=== PATIENT | female | born 1945 | race Caucasian/White ===

== ENCOUNTER 2016-10-27 16:08 | Emergency (ER) | payer MEDICARE, OTHER ==
[~2016-10-27] VITALS: Ht 170.2 cm; Wt 81.0 kg
[2016-10-27] MEDS ORDERED: GABAPENTIN100 MG PO (17:06)
[2016-10-27] MEDS ORDERED: ISOSORB MONO30 MG PO (17:07)
[2016-10-27] MEDS ORDERED: CLONIDINE0.1 MG PO (17:07)
[2016-10-27] MEDS ORDERED: CLOPIDOGREL75 MG PO (17:08)
[2016-10-27] MEDS ORDERED: HYDROCHLOROT12.5 MG PO (17:08)
[2016-10-27] MEDS ORDERED: OXYCODONE HCL5 MG PO (17:09)
[2016-10-27] MEDS ORDERED: METFORMIN500 M2 PO (17:10)
[2016-10-27] MEDS ORDERED: TRAZODONE50 MG PO (17:12)
[2016-10-27] MEDS ORDERED: LOPRESSOR50 M1 PO (17:12)
[2016-10-27] MEDS ORDERED: FENOFIBRATE145 MG PO (17:13)
[2016-10-27] MEDS ORDERED: DIAZEPAM5 MG PO (17:13)
[2016-10-27] MEDS ORDERED: VENTOLIN HFA IN (17:16)
[2016-10-27] MEDS ORDERED: ADVAIR DISK1 INH (17:16)
[2016-10-27] MEDS ORDERED: SPIRIVA IN (17:17)
[2016-10-27] MEDS ORDERED: ALBUTEROL SUL0.083 % IN (17:17)
[2016-10-27] MEDS ORDERED: ASPIRIN LOW DOS81 M1 PO (17:18)
[2016-10-27] MEDS ORDERED: NORVASC2.5 MG PO (17:18)
[2016-10-27] MEDS ORDERED: TEMAZEPAM30 MG PO (17:19)
[2016-10-27] MEDS ORDERED: SYNTHROID100 MCG PO (17:19)
[2016-10-27 17:55] LABS: HEMATOCRIT 37.5 % (37.0-47.0); HEMOGLOBIN 12.5 g/dl (12.0-16.0); IMMATURE GRANULOCYTES 0.6 % (0.0-1.0); MEAN CELL VOLUME 92.1 fL CALC (80.0-100.0); MEAN CORPUSCULAR HGB 30.7 pG CALC (26.0-32.0); MEAN CORPUSCULAR HGB CONC 33.3 g/L CALC (32.0-36.0); NEUT# 6.7 thou/uL (2.00-7.15); RED BLOOD COUNT 4.07 mill/uL (4.20-5.60)
[2016-10-27 18:08] LABS: ALBUMIN 4.2 g/dL (3.2-5.0); ALKALINE PHOSPHATASE 66 u/l (38-126); ANION GAP 16 (6-22 (CALC)); BILIRUBIN, TOTAL 0.3 mg/dL (0.0-1.4); BUN 29 mg/dL (8-23); BUN/CREATININE RATIO 31 (12-20 (CALC)); CALCIUM 10.8 mg/dL (8.4-10.2); CARBON DIOXIDE 25 mmol/l (22-30); CHLORIDE 104 mmol/l (95-108); CREATININE 0.9 mg/dL (0.5-1.0); GFR > 60 ML/MIN (>=60 (CALC)); GFR FOR AFR.AMER. > 60 ML/MIN (>=60 (CALC)); GLUCOSE 109 mg/dL (82-115); POTASSIUM 3.9 mmol/l (3.5-5.1); SGOT/AST 19 u/l (9-36); SGPT/ALT 30 u/l (11-66); SODIUM 141 mmol/l (137-146); TOTAL PROTEIN 7.2 g/dL (6.3-8.2)
[2016-10-27 18:09] LABS: INTERNATIONAL NORMALIZED RATIO 1.1 RATIO (0.7-1.3); PROTHROMBIN TIME 12.1 SECONDS (9.0-12.5)
[2016-10-27 18:20] LABS: MYOGLOBIN 54 ng/mL (0 - 62)
--- NOTE | 2016-10-27 19:16 | NUR ---
BREATHING TREATMENT GIVEN. IT WAS EXPLAINT TO HER HOW TO BREATH DEEPLY FOR GOOD DEPOSITION TO THE LUNGS.
[2016-10-27] MEDS ORDERED: PREDNISONE10 MG PO (19:36)
[2016-10-27 20:15] VITALS: BP 119/62
== END 2016-10-27 20:15 | disposition left against medical advice (07) ==
LOC: ED 16:08 → ED-I 19:21 → ED 20:15
PROVIDERS: Emergency Medicine
DX: J44.1 Chronic obstructive pulmonary disease with (acute) exacerbation (principal); R09.02 Hypoxemia; M79.661 Pain in right lower leg; R06.02 Shortness of breath; Z91.19 Patient's noncompliance with other medical treatment and regimen